=== PATIENT | male | born 1965 | race Caucasian/White ===

== ENCOUNTER 2017-11-08 19:34 | Emergency (ER) | payer BC ==
[~2017-11-08] VITALS: Ht 170.2 cm; Wt 66.3 kg
[2017-11-08 19:40] VITALS: TEMP 37; Ht 170.2 cm; Wt 66.3 kg
[2017-11-08] MEDS ORDERED: SODIUM CHLORIDE 0.9% 1000ML 1,000 ML IV STA (19:47)
--- NOTE | 2017-11-08 19:57 | EMERGENCY ROOM VISIT NOTE ---
History Report prepared by Socrates: Georgia Wu Under the Supervision of: Dr. Noel Velez M.D. First contact with patient: 19:42 Chief Complaint: ABDOMINAL PAIN Stated Complaint: HERNIA PROBLEMS, BULDGING AND BURNING History of Present Illness The patient is a 52 year old male who presents to the Emergency Room with complaints of constabt abdominal discomfort beginning on Thursday, two days ago. The patient has a history of a hernia repair about 30 years ago. He reports very rare discomfort from his hernia over the past 30 years. The patient reports abdominal burning in the area where his hernia is. He reports his hernia started "bulging out" on Thursday. Before this incident, he would notice his hernia would be budge only twice a year. The patient's last bowel movement was this morning. He denies any change in his diet. He denies any straining when he has a bowel movement. He reports his pain is relieved when he passes gas. He takes an aspirin daily. He denies any nausea, vomiting, cough, congestion, fever, or chills. Source of History: patient Onset: two days ago Position: abdomen Quality: burning Timing: constant Modifying Factors (Relieving): other (passing gas) Associated Symptoms: + abdominal pain, No fevers, No chills, No cough, No nausea, No vomiting Review of Systems See HPI for pertinent positives and negatives. A total of ten systems were reviewed and were otherwise negative. Past Medical & Surgical Medical Problems: (1) Hernia Family History Groin hernia Social History Smoking Status: Never Smoker Marital Status: Housing Status: lives with family Occupation Status: employed Current/Historical Medications Scheduled Docusate Sodium (Colace), 1 CAP PO BID Scheduled PRN Simethicone (Simethicone), 1 CAP PO QID PRN for Gas or Constipation Allergies Coded Allergies: No Known Allergies (Unverified , 11/08/17) Physical Exam Vital Signs Date Time Temp Pulse Resp B/P (MAP) Pulse Ox O2 Delivery O2 Flow Rate FiO2 11/08/17 21:24 54 16 135/86 98 11/08/17 19:40 37.0 98 17 97 Room Air Physical Exam GENERAL: Awake, alert, well-appearing, in no distress HENT: Normocephalic, atraumatic. Oropharynx unremarkable. Dry MM. EYES: Normal conjunctiva. Sclera non-icteric. NECK: Supple. No nuchal rigidity. FROM. No JVD. RESPIRATORY: Clear to auscultation. CARDIAC: Regular rate, normal rhythm. Extremities warm and well perfused. Pulses equal. ABDOMEN: 5 cm direct inguinal hernia on left which is soft, there is no erythema , warmth or tenderness. Soft, non-distended. No tenderness to palpation. No rebound or guarding. No masses. RECTAL: Deferred. MUSCULOSKELETAL: Chest examination reveals no tenderness. The back is symmetrical on inspection without obvious abnormality. There is no CVA tenderness to palpation. No joint edema. LOWER EXTREMITIES: Calves are equal size bilaterally and non-tender. No edema. No discoloration. NEURO: Normal sensorium. No sensory or motor deficits noted. SKIN: No rash or jaundice noted. Medical Decision & Procedures Laboratory Results 11/08/17 20:00 Red Blood Count 4.35, Mean Corpuscular Volume 93.6, Mean Corpuscular Hemoglobin 32.0, Mean Corpuscular Hemoglobin Concent 34.2, Mean Platelet Volume 9.2, Neutrophils (%) (Auto) 42.4, Lymphocytes (%) (Auto) 41.3, Monocytes (%) (Auto) 12.6, Eosinophils (%) (Auto) 2.8, Basophils (%) (Auto) 0.7, Neutrophils # (Auto ) 2.28, Lymphocytes # (Auto) 2.22, Monocytes # (Auto) 0.68, Eosinophils # (Auto ) 0.15, Basophils # (Auto) 0.04 11/08/17 20:00 Test 11/08/17 20:00 White Blood Count 5.38 K/uL (4.8-10.8) Red Blood Count 4.35 M/uL (4.7-6.1) Hemoglobin 13.9 g/dL (14.0-18.0) Hematocrit 40.7 % (42-52) Mean Corpuscular Volume 93.6 fL (80-100) Mean Corpuscular Hemoglobin 32.0 pg (25-34) Mean Corpuscular Hemoglobin Concent 34.2 g/dl (32-36) Platelet Count 228 K/uL (130-400) Mean Platelet Volume 9.2 fL (7.4-10.4) Neutrophils (%) (Auto) 42.4 % Lymphocytes (%) (Auto) 41.3 % Monocytes (%) (Auto) 12.6 % Eosinophils (%) (Auto) 2.8 % Basophils (%) (Auto) 0.7 % Neutrophils # (Auto) 2.28 K/uL (1.4-6.5) Lymphocytes # (Auto) 2.22 K/uL (1.2-3.4) Monocytes # (Auto) 0.68 K/uL (0.11-0.59) Eosinophils # (Auto) 0.15 K/uL (0-0.5) Basophils # (Auto) 0.04 K/uL (0-0.2) RDW Standard Deviation 44.6 fL (36.4-46.3) RDW Coefficient of Variation 12.9 % (11.5-14.5) Immature Granulocyte % (Auto) 0.2 % Immature Granulocyte # (Auto) 0.01 K/uL (0.00-0.02) Anion Gap 8.0 mmol/L (3-11) Est Creatinine Clear Calc Drug Dose 110.4 ml/min Estimated GFR () 123.8 Estimated GFR (Non- 106.8 BUN/Creatinine Ratio 14.7 (10-20) Lactic Acid Level 0.8 mmol/L (0.4-2.0) Calcium Level 9.5 mg/dl (8.5-10.1) Total Bilirubin 1.1 mg/dl (0.2-1) Direct Bilirubin 0.3 mg/dl (0-0.2) Aspartate Amino Transf (AST/SGOT) 25 U/L (15-37) Alanine Aminotransferase (ALT/SGPT) 27 U/L (12-78) Alkaline Phosphatase 56 U/L (45-117) Total Protein 7.2 gm/dl (6.4-8.2) Albumin 4.1 gm/dl (3.4-5.0) Lipase 144 U/L (73-393) Medications Administered Medications (Trade) Dose Ordered Sig/Noble Route Start Time Stop Time Status Last Admin Dose Admin Sodium Chloride 1,000 ml @ 999 mls/hr Q1H1M STAT IV 11/08/17 19:47 11/08/17 20:47 DC 11/08/17 20:11 999 MLS/HR Procedure Inguinal hernia reduction. Indication: Left Inguinal hernia Verbal consent obtained. Risks and benefits were explained with the usual customary discussion. A time out was taken. The patient's left direct inguinal hernia was easily reduced with gentle progressive pressure after being pretreated with ice applied in Trendelenburg. The patient had significant pain relief and tolerated the procedure well. ED Course 1945: The patient was evaluated in room B9. A complete history and physical exam was performed. 2029: I was able to reduce the patient's hernia without difficulty. 2113: I reevaluated the patient. Discussed results and discharge instructions: He verbalized understanding and agreement. The patient is ready for discharge. Medical Decision I reviewed the patient's past medical history, medications, and the nursing notes as described above. Differential diagnoses include: Obstruction, strangulated hernia, incarcerated hernia, among others. The patient is a 52-year-old gentleman with a past medical history of a left inguinal hernia repair who presents emergency department with recurrence of this hernia that began on Thursday that intermittently bulges and causes some mild pain per hpi. Of note, patient reports still having normal bowel movements with last bowel movement this morning. He denies any changes in appetite or nausea or vomiting. On arrival the patient is no acute distress, afebrile stable vital signs. On exam the patient has a 5 cm area of fluctuance in his left inguinal region consistent with direct inguinal hernia. Patient placed in Trendelenburg and ice was applied with subsequent easy reduction without difficulty. Labs unremarkable including WBC and lactate within normal limits. Thus given reassuring workup and exam without any findings to suggest incarceration or strangulation no indication for imaging at this time. Patient was counseled on how to self reduce the hernia as well as using supportive garments including a dedicated inguinal hernia strap to prevent symptoms. 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 Findings and plan for follow-up reviewed with patient. Patient agreeable and d/c'd per discharge instructions. Medication Reconcilliation Current Medication List: was personally reviewed by me Blood Pressure Screening Patient's blood pressure: Normal blood pressure Impression Primary Impression: Inguinal hernia, left Scribe Attestation The scribe's documentation has been prepared under my direction and personally reviewed by me in its entirety. I confirm that the note above accurately reflects all work, treatment, procedures, and medical decision making performed by me. Departure Information Dispostion Home / Self-Care Prescriptions Simethicone (Simethicone) 125 Mg Cap 1 CAP PO QID Y for Gas or Constipation for 7 Days, #28 CAP Prov: Noel Velez M.D. 11/08/17 Docusate Sodium (COLACE) 100 Mg Cap 1 CAP PO BID for 15 Days, #30 CAP Prov: Noel Velez M.D. 11/08/17 Forms Call Back Authorization, HOME CARE DOCUMENTATION FORM, IMPORTANT VISIT INFORMATION Patient Instructions ED Hernia Inguinal, [facility] Additional Instructions Please follow up with your surgeon tomorrow to arrange for an appointment for re -evaluation and possible elective surgery. You had an inguinal hernia that is easily reducible and does not show any signs of obstruction. Otherwise, your exam and lab results did not show signs of an emergent condition at this time. Colace as needed for stool softening. Simethicone for gas and constipation. Wear briefs and inguinal hernia support brief for additional inguinal support. At home if needed you may try self reduction by lying flat with your hips raised and applying ice for 10 minutes and then gently applying pressure to reduce your hernia. Drink plenty of fluids to ensure hydration. Return to the emergency department for worsening symptoms as described in the accompanying instructions.
[2017-11-08 20:13] LABS: BASO % 0.7 %; BASO ABS # 0.04 K/uL (0-0.2); EOS % 2.8 %; EOS ABS # 0.15 K/uL (0-0.5); HEMATOCRIT 40.7 % (42-52); HEMOGLOBIN 13.9 g/dL (14.0-18.0); IG# 0.01 K/uL (0.00-0.02); LYMPH % 41.3 %; LYMPH ABS # 2.22 K/uL (1.2-3.4); MEAN CELL VOLUME 93.6 fL (80-100); MEAN CORPUSCULAR HGB CONC 34.2 g/dl (32-36); MEAN PLATELET VOLUME 9.2 fL (7.4-10.4); MONO % 12.6 %; MONO ABS # 0.68 K/uL (0.11-0.59); NEUT % 42.4 %; NEUT ABS # 2.28 K/uL (1.4-6.5); PLATELET COUNT 228 K/uL (130-400); RED CELL DISTRIBUTION WIDTH CV 12.9 % (11.5-14.5); RED CELL DISTRIBUTION WIDTH SD 44.6 fL (36.4-46.3); WHITE BLOOD COUNT 5.38 K/uL (4.8-10.8)
[2017-11-08 20:32] LABS: ALBUMIN 4.1 gm/dl (3.4-5.0); CALCIUM 9.5 mg/dl (8.5-10.1); CREATININE 0.74 mg/dl (0.60-1.40); POTASSIUM 3.5 mmol/L (3.5-5.1)
[2017-11-08 20:35] LABS: TOTAL PROTEIN 7.2 gm/dl (6.4-8.2)
[2017-11-08] MEDS ORDERED: DOCU-94 PO (21:06)
[2017-11-08] MEDS ORDERED: SIME1CAP28 PO (21:06)
[2017-11-08 21:24] VITALS: BP 135/86; PULSE 54; O2SAT 98
== END 2017-11-08 21:27 | disposition home or self-care (01) ==
LOC: C.EDB 19:36
DX: K40.90 Unilateral inguinal hernia, without obstruction or gangrene, not specified as recurrent (principal)